=== PATIENT | female | born 1945 | race Caucasian/White ===

== ENCOUNTER → 2023-11-11 15:13 | Outpatient (REF) | payer OTHER, SELFPAY | LOC: RAD 15:13 | PROVIDERS: ATTENDING PHYSICIAN Internal Medicine Hematology & Oncology; FAMILY PHYSICIAN Physician Assistant; REFERRING PHYSICIAN Nurse Practitioner Primary Care | DX: D64.9 Anemia, unspecified (principal); D72.819 Decreased white blood cell count, unspecified; C83.33 Diffuse large B-cell lymphoma, intra-abdominal lymph nodes; D64.81 Anemia due to antineoplastic chemotherapy | CPT/HCPCS: 71260; 74177; Q9967 ==

== ENCOUNTER → 2024-02-09 14:12 | Outpatient (REF) | payer OTHER, SELFPAY | LOC: RAD 14:12 | PROVIDERS: ATTENDING PHYSICIAN Physician Assistant | DX: R10.13 Epigastric pain (principal); Z87.19 Personal history of other diseases of the digestive system | CPT/HCPCS: 74160; Q9967 ==

== ENCOUNTER → 2024-07-02 10:29 | Outpatient (REF) | payer OTHER, SELFPAY ==
[2024-07-02 12:23] LABS: ALT (SGPT) 32 U/L (0-35); AST (SGOT) 31 U/L (14-36); Albumin 2.6 g/dl (3.5-5.0); Alkaline Phosphatase 131 U/L (38-126); Blood Urea Nitrogen 29 mg/dl (7-17); Calcium 9.6 mg/dl (8.4-10.2); Carbon Dioxide 28 mmol/L (22-30); Chloride 99 mmol/L (98-107); Glucose 87 mg/dl (70-99); Potassium 5.8 mmol/L (3.5-5.1); Sodium 135 mmol/L (135-145); Total Bilirubin 0.4 mg/dl (0.2-1.3); Total Protein 5.8 g/dl (6.3-8.2); eGFR 58.39
== END ==
LOC: REG 10:29
PROVIDERS: ATTENDING PHYSICIAN Internal Medicine Hematology & Oncology; FAMILY PHYSICIAN Physician Assistant
DX: D64.9 Anemia, unspecified (principal); D72.819 Decreased white blood cell count, unspecified; C83.33 Diffuse large B-cell lymphoma, intra-abdominal lymph nodes; D64.81 Anemia due to antineoplastic chemotherapy; Z87.19 Personal history of other diseases of the digestive system
CPT/HCPCS: 36415; 80053

== ENCOUNTER → 2024-07-03 12:44 | Outpatient (REF) | payer OTHER, SELFPAY | LOC: RAD 12:44 | PROVIDERS: ATTENDING PHYSICIAN Internal Medicine Hematology & Oncology; FAMILY PHYSICIAN Physician Assistant | DX: C83.33 Diffuse large B-cell lymphoma, intra-abdominal lymph nodes (principal); D64.81 Anemia due to antineoplastic chemotherapy; D64.9 Anemia, unspecified; D72.819 Decreased white blood cell count, unspecified | CPT/HCPCS: 71260; 74177; Q9967 ==

== ENCOUNTER → 2024-10-16 09:33 | Outpatient (REF) | payer OTHER, SELFPAY | LOC: WDC 09:33 | PROVIDERS: ATTENDING PHYSICIAN Nurse Practitioner Adult Health; FAMILY PHYSICIAN Physician Assistant | DX: Z12.31 Encounter for screening mammogram for malignant neoplasm of breast (principal); M81.0 Age-related osteoporosis without current pathological fracture; M54.50 Low back pain, unspecified; G89.29 Other chronic pain | CPT/HCPCS: 72110; 77063; 77067; 77080 ==

== ENCOUNTER → 2025-07-04 13:58 | Outpatient (REF) | payer OTHER, SELFPAY | LOC: RAD 13:58 | PROVIDERS: ATTENDING PHYSICIAN Internal Medicine Hematology & Oncology; FAMILY PHYSICIAN Physician Assistant | DX: D64.9 Anemia, unspecified (principal); D72.819 Decreased white blood cell count, unspecified; C83.33 Diffuse large B-cell lymphoma, intra-abdominal lymph nodes; D64.81 Anemia due to antineoplastic chemotherapy; Z87.19 Personal history of other diseases of the digestive system | CPT/HCPCS: 71260; 74177; Q9967 ==

== ENCOUNTER → 2025-08-07 12:36 | Outpatient (REF) | payer OTHER, SELFPAY ==
[2025-08-07 12:58] VITALS: BP 141/68; BP_SYST 48
[2025-08-07 13:41] VITALS: BP 114/90; BP_SYST 47
== END ==
LOC: RADI 12:36
PROVIDERS: ATTENDING PHYSICIAN Internal Medicine Hematology & Oncology; FAMILY PHYSICIAN Physician Assistant
DX: Z45.2 Encounter for adjustment and management of vascular access device (principal); C83.33 Diffuse large B-cell lymphoma, intra-abdominal lymph nodes
CPT/HCPCS: 36590; 77001